=== PATIENT | female | born 1975 | race African-American/Black ===

== ENCOUNTER 2017-05-24 17:49 | Emergency (ER) | payer MEDICAID ==
[~2017-05-24] VITALS: Ht 147.3 cm; Wt 85.0 kg
[~2017-05-24 17:49] MED LIST: CELE20TA PO; FOLI5CAP PO; HYDR-3535 PO; MEDR4PAK PO; MILL5TAB PO; RANI150C PO
[2017-05-24 17:56] VITALS: BP 169/102; PULSE 142; RESP 17; TEMP 100.3; O2SAT 100
--- NOTE | 2017-05-24 18:27 | RADRPT ---
EXAM DATE/TIME: 05/24/2017 18:15 [facility] COMPARISON: No previous studies available for comparison. INDICATIONS : Chest pain. MEDICAL HISTORY : None. SURGICAL HISTORY : None. ENCOUNTER: Initial ACUITY: 3 days PAIN SCORE: 10/10 LOCATION: Bilateral chest FINDINGS: Fairly diffuse but basilar predominant hazy parenchymal opacities are seen of both lungs. Heart size is upper limits of normal. Very small, bilateral pleural effusions are suspected. No pneumothorax. CONCLUSION: Probable early or mild failure in the proper clinical setting versus bibasilar pneumonia. Sergio Snowden MD on May 24, 2017 at 18:24 Board Certified Radiologist. This report was verified electronically.
[2017-05-24 19:28] VITALS: BP 144/85; PULSE 114; RESP 24; TEMP 101; O2SAT 99
[2017-05-24] MEDS ORDERED: HYDR-3583 PO (19:33)
[2017-05-24] MEDS ORDERED: oxyCODONE/ACETAMINOPHEN 5 MG/325 MG TAB PO ONE (20:00)
[2017-05-24] MEDS ORDERED: ACETAMINOPHEN 325 MG TAB PO ONE (20:00)
[2017-05-24] MEDS ORDERED: AZITHROMYCIN 250 MG TAB PO ONE (20:15)
[2017-05-24 22:06] VITALS: BP 138/73; PULSE 108; RESP 18; TEMP 100.9; O2SAT 98
[2017-05-24 22:39] LABS: AUTOMATED NEUTROPHIL # 5.6 TH/MM3 (1.8-7.7); BASOPHIL % 0.6 % (0.0-2.0); EOSINOPHIL # 0.1 TH/MM3 (0-0.4); EOSINOPHIL % 1.2 % (0.0-4.0); HEMATOCRIT 29.8 % (35.0-46.0); HEMOGLOBIN 9.6 GM/DL (11.6-15.3); LYMPH % 16.4 % (9.0-44.0); LYMPHOCYTE # 1.3 TH/MM3 (1.0-4.8); MEAN CELL VOLUME 81.9 FL (80.0-100.0); MEAN CORPUSCULAR HEMOGLOBIN 26.5 PG (27.0-34.0); MEAN CORPUSCULAR HGB CONC 32.3 % (32.0-36.0); MEAN PLATELET VOLUME 8.6 FL (7.0-11.0); MONO % 11.6 % (0.0-8.0); MONOCYTE # 0.9 TH/MM3 (0-0.9); NEUT % 70.2 % (16.0-70.0); PLATELET COUNT 478 TH/MM3 (150-450); RED BLOOD COUNT 3.64 MIL/MM3 (4.00-5.30); WHITE BLOOD COUNT 7.9 TH/MM3 (4.0-11.0)
[2017-05-24 22:45] LABS: BICARBONATE 25.6 MEQ/L (21.0-32.0); BLOOD UREA NITROGEN 5 MG/DL (7-18); CALCIUM 8.8 MG/DL (8.5-10.1); CHLORIDE 98 MEQ/L (98-107); CREATININE 0.58 MG/DL (0.50-1.00); GLOMERULAR FILTRATION RATE 137 ML/MIN (>89); GLUCOSE,RANDOM 90 MG/DL (74-106); SODIUM (NA) 135 MEQ/L (136-145)
--- NOTE | 2017-05-24 22:47 | PD ---
HPI Chief Complaint: Chest Pain Time Seen by Provider: 19:23 Travel History International Travel<30 days: No Contact w/Intl Traveler<30days: No Traveled to known affect area: No History of Present Illness HPI Patient is a 42-year-old female with RA on prednisone , pt coming in with 3 days of right-sided chest pain just to the right of her sternum area. She has had shortness of breath and she says is more difficult to breathe when she lies flat. 2 years ago she had a pleural effusion she said that was drained. She has a history of shortness of breath coughing and a fever of 101 here at triage. Main complaint is localized right-sided chest pain worse with lying flat shortness of breath increases with lying flat. She took 1 dose of Motrin at 6 hours ago for the aches with moderate relief now the symptoms have returned. She has not seen another doctor for this and she has not taken any antibiotics she said the pleural effusion she had was secondary to pneumonia. PFSH Past Medical History Hx Anticoagulant Therapy: No Anemia: Yes Arthritis: Yes (osteoarthritis/rheumatoid arthritis) Asthma: No Autoimmune Disease: Yes Anxiety: No Depression: Yes Heart Rhythm Problems: No Cancer: No Cardiovascular Problems: No High Cholesterol: No Chemotherapy: No Chest Pain: Yes (last bout 3-4 months ago) Congestive Heart Failure: No COPD: No Cerebrovascular Accident: No Diabetes: No Diminished Hearing: No Endocrine: No Gastrointestinal Disorders: Yes GERD: Yes Genitourinary: No Headaches: Yes Hepatitis: No Hiatal Hernia: No Immune Disorder: No Implanted Vascular Access Dvce: Yes Kidney Stones: No Musculoskeletal: Yes Neurologic: Yes Psychiatric: Yes Reproductive: No Respiratory: No Migraines: Yes (every now and then) Renal Failure: No Seizures: No Sleep Apnea: Yes Thyroid Disease: No Ulcer: No ?: Not : 1 Para: 1 Miscarriage: 0 : 0 Past Surgical History Abdominal Surgery: No AICD: No Arteriovenous Shunt: No Body Medical Devices: NONE Cardiac Surgery: Yes Section: Yes Ear Surgery: No Endocrine Surgery: No Eye Surgery: No Genitourinary Surgery: No Gynecologic Surgery: Yes (C SECTION) Hysterectomy: No Insulin Pump: No Joint Replacement: Yes (Right total hip 11/2014) Neurologic Surgery: No Oral Surgery: No Pacemaker: No Thoracic Surgery: No Other Surgery: Yes Social History Alcohol Use: No Tobacco Use: No Substance Use: No Allergies-Medications (Allergen,Severity, Reaction): Coded Allergies: aspirin (Unverified Allergy, Severe, FLUID BUILDS UP IN HER CHEST, 05/24/17 ) Reported Meds & Prescriptions Reported Meds & Active Scripts Active Guaifenesin AC Liq (Guaifenesin-Codeine Liq) 100-10 Mg/5 Ml Syrp 10 Ml PO Q6H PRN Azithromycin 250 Mg Tab 250 Mg PO DAILY Reported Hydrocodone-Acetaminophen 10-325 mg Tab 1 Tab PO Q4H PRN Celexa (Citalopram Hydrobromide) 20 Mg Tab 20 Mg PO DAILY Millipred (Prednisolone) 5 Mg Tab 5 Mg PO EVERY OTHER DAY Ranitidine (Ranitidine HCl) 150 Mg Cap 150 Mg PO BID Review of Systems Except as stated in HPI: all other systems reviewed are Neg Cardiovascular: Positive: Chest Pain or Discomfort Respiratory: Positive: Cough, Shortness of Breath Physical Exam Narrative GENERAL: Patient is tachycardic and appears to be in pain mild fever of 101 at triage SKIN: Warm and dry. patchy rash on her face diffuse HEAD: Atraumatic. Normocephalic. EYES: Pupils equal and round. No scleral icterus. No injection or drainage. ENT: No nasal bleeding or discharge. Mucous membranes pink and moist. NECK: Trachea midline. No JVD. CARDIOVASCULAR: Regular rate and rhythm. Sinus tach at 123 on EKG. Patient has reproducible right costochondritis-like pain just off of the right of the sternum around rib 6 RESPIRATORY: No accessory muscle use. Patient is decrease breath sounds in the right lower lobe and also moderate crackles as mid right lobe GASTROINTESTINAL: Abdomen soft, non-tender, nondistended. Hepatic and splenic margins not palpable. MUSCULOSKELETAL: Extremities left hand deformities of RA at wrist without clubbing, cyanosis, or edema. NEUROLOGICAL: Awake and alert. No obvious cranial nerve deficits. Motor grossly within normal limits. Five out of 5 muscle strength in the arms and legs. Normal speech. PSYCHIATRIC: Appropriate mood and affect; insight and judgment normal. Data Data Last Documented VS Vital Signs Date Time Temp Pulse Resp B/P (MAP) Pulse Ox O2 Delivery O2 Flow Rate FiO2 05/25/17 01:37 05/24/17 22:06 100.9 108 18 98 Room Air Orders Orders Electrocardiogram (05/24/17 18:00) Chest, Pa & Lat (05/24/17 ) Complete Blood Count With Diff (05/24/17 18:06) Basic Metabolic Panel (Bmp) (05/24/17 18:06) Ckmb (Isoenzyme) Profile (05/24/17 18:06) Troponin I (05/24/17 18:06) Beta Hcg (Quant/Titer) (05/24/17 19:23) Ed Urine Pregnancytest Poc (05/24/17 19:24) Blood Culture (05/24/17 19:47) Lactic Acid (05/24/17 19:47) Acetaminophen (Tylenol) (05/24/17 20:00) Oxycodone-Acetamin 5-325 Mg (Percocet (05/24/17 20:00) Azithromycin (Zithromax) (05/24/17 20:15) Urinalysis - C+S If Indicated (05/24/17 22:43) Ct Pulmonary Angiogram (05/25/17 ) Iohexol 350 Inj (Omnipaque 350 Inj) (05/25/17 00:48) Ed Discharge Order (05/25/17 01:46) Labs Laboratory Tests Test 05/24/17 20:18 05/24/17 21:45 05/24/17 21:55 05/24/17 22:00 Lactic Acid Level 1.6 mmol/L Urine Color YELLOW Urine Turbidity CLEAR Urine pH 7.5 Urine Specific [place] 1.013 Urine Protein TRACE mg/dL Urine Glucose (UA) NEG mg/dL Urine Ketones 10 mg/dL Urine Occult Blood TRACE Urine Nitrite NEG Urine Bilirubin NEG Urine Urobilinogen LESS THAN 2.0 MG/DL Urine Leukocyte Esterase NEG Urine RBC LESS THAN 1 /hpf Urine WBC LESS THAN 1 /hpf Urine Squamous Epithelial Cells 2 /hpf Urine Bacteria RARE /hpf Microscopic Urinalysis Comment CULT NOT INDICATED Blood Urea Nitrogen 5 MG/DL Creatinine 0.58 MG/DL Random Glucose 90 MG/DL Calcium Level 8.8 MG/DL Sodium Level 135 MEQ/L Potassium Level 3.8 MEQ/L Chloride Level 98 MEQ/L Carbon Dioxide Level 25.6 MEQ/L Anion Gap 11 MEQ/L Estimat Glomerular Filtration Rate 137 ML/MIN Total Creatine Kinase 79 U/L Troponin I LESS THAN 0.02 NG/ML Human Chorionic Gonadotropin, Quant LESS THAN 1 MIU/ML White Blood Count 7.9 TH/MM3 Red Blood Count 3.64 MIL/MM3 Hemoglobin 9.6 GM/DL Hematocrit 29.8 % Mean Corpuscular Volume 81.9 FL Mean Corpuscular Hemoglobin 26.5 PG Mean Corpuscular Hemoglobin Concent 32.3 % Red Cell Distribution Width 16.0 % Platelet Count 478 TH/MM3 Mean Platelet Volume 8.6 FL Neutrophils (%) (Auto) 70.2 % Lymphocytes (%) (Auto) 16.4 % Monocytes (%) (Auto) 11.6 % Eosinophils (%) (Auto) 1.2 % Basophils (%) (Auto) 0.6 % Neutrophils # (Auto) 5.6 TH/MM3 Lymphocytes # (Auto) 1.3 TH/MM3 Monocytes # (Auto) 0.9 TH/MM3 Eosinophils # (Auto) 0.1 TH/MM3 Basophils # (Auto) 0.0 TH/MM3 CBC Comment DIFF FINAL Differential Comment MDM Medical Decision Making Medical Screen Exam Complete: Yes Emergency Medical Condition: Yes Differential Diagnosis PNA vs CP of ischemia vs costochondritis vs muscle starin vs GERD other Narrative Course I discussed with the patient the need for inpatient admission and echocardiogram to figure out her cardiac effusion which she has no idea that she has. It was on CAT scan there is no signs of tamponade or ventricular compromise however I want to admit her for cardiac follow-up room hematology follow-up as well as echocardiogram to assure her ventricle is not in any way compromise she refuses to be admitted patient wants to leave I do not make her sign out AGAINST MEDICAL ADVICE but I explained that the infusion rapidly increases it can cause cardiac tamponade which could lead to syncope which could lead to she still insists she would like to go home and follow her Dr. I gave her a report copy of her CT results that show the mild pericardial effusion otherwise her lungs will be treated as a bronchitis with azithromycin and cough syrup Diagnosis Primary Impression: Pericardial effusion Patient Instructions: General Instructions, Pericardial Effusion (ED) Scripts Guaifenesin-Codeine Liq (Guaifenesin AC Liq) 100-10 Mg/5 Ml Syrp 10 ML PO Q6H Y for COUGH, #1 BOTTLE 0 Refills Prov: Harsha Encinas MD 05/25/17 Azithromycin (Azithromycin) 250 Mg Tab 250 MG PO DAILY for Infection, #4 TAB 0 Refills Prov: Harsha Encinas MD 05/25/17 Disposition: 01 DISCHARGE HOME Condition: Harsha Magaña MD May 24, 2017 22:47
[2017-05-24 23:15] LABS: BACTERIA, URINE RARE /hpf; BILIRUBIN, URINE NEG (NEG); BLOOD, URINE TRACE (NEG); GLUCOSE,URINE NEG (NEG); KETONE, URINE 10 mg/dL (NEG); NITRITE,URINE NEG (NEG); PH, URINE 7.5 (5.0-8.5); SQUAMOUS EPITHELIAL CELL URINE 2 /hpf (0-5); URINE COLOR YELLOW (YELLW/STRAW); URINE LEUKOCYTE ESTERASE NEG (NEG)
[2017-05-25 00:21] LABS: TROPONIN I LESS THAN 0.02 NG/ML (0.02-0.05)
[2017-05-25] MEDS ORDERED: IOHEXOL 350 MG/ML 10 ML VIAL (for RAD DIAG) IVCONTRAST ONE (00:48)
--- NOTE | 2017-05-25 01:04 | RADRPT ---
EXAM DATE/TIME: 05/25/2017 00:46 [facility] COMPARISON: CT PULMONARY ANGIOGRAM, November 15, 2014, 12:48. INDICATIONS : Chest pain. IV CONTRAST: 75 cc Omnipaque 350 (iohexol) IV RADIATION DOSE: 15.03 CTDIvol (mGy) MEDICAL HISTORY : Gastroesophageal reflux disease. SURGICAL HISTORY : Hip. ENCOUNTER: Initial ACUITY: 1 day PAIN SCALE: 5/10 LOCATION: Bilateral chest TECHNIQUE: Volumetric scanning of the chest was performed using a pulmonary embolism protocol MIP images were re constructed. Using automated exposure control and adjustment of the mA and/or kV according to patien t size, radiation dose was kept as low as reasonably achievable to obtain optimal diagnostic quality images. DICOM format image data is available electronically for review and comparison. Follow-up recommendations for detected pulmonary nodules are based at a minimum on nodule size and pa tient risk factors according to Fleischner Society Guidelines. FINDINGS: Breathing motion artifact degrades the exam. PULMONARY ARTERIES: No filling defects are seen in the pulmonary arteries through the segmental level. LUNGS: There is no consolidation or pneumothorax . No concerning pulmonary nodule is visualized. Mild scatt ered areas of dependent atelectasis. PLEURAE: There is no pleural thickening or pleural effusion. MEDIASTINUM: The heart is at the upper limits of normal in terms of size. Small pericardial effusion. Some residua l thymic tissue is noted. This is stable from the 2014 exam. MUSCULOSKELETAL: Within normal limits for patient age. MISCELLANEOUS: The visualized upper abdominal organs demonstrate no acute abnormality. CONCLUSION: 1. No pulmonary emboli. 2. Minimal scattered dependent atelectasis. 3. Small pericardial effusion. Mark Reyes Jr., MD on May 25, 2017 at 0:59 Board Certified Radiologist. This report was verified electronically.
[2017-05-25] MEDS ORDERED: AZIT250T3 PO (01:27)
[2017-05-25] MEDS ORDERED: GUAISYP4 PO (01:32)
--- NOTE | 2017-05-25 13:48 | EKG ---
Date Performed: 05/24/2017 Time Performed: 18:02:27 PTAGE: 42 years EKG: SINUS TACHYCARDIA NONSPECIFIC T-WAVE ABNORMALITY ABNORMAL RHYTHM ECG Compared to PREVIOUS TRACING the sinus tachycardia is new. There has been some slight variation in t he nonspecific T wave changes PREVIOUS TRACIN01/18/16 DOCTOR: Cyndi Milan Interpretating Date/Time 05/25/2017 13:46:21
== END 2017-05-25 02:07 | disposition home or self-care (01) ==
LOC: NEPC 17:49
DX: I31.3 Pericardial effusion (noninflammatory) (principal); J40 Bronchitis, not specified as acute or chronic; R50.9 Fever, unspecified; R94.31 Abnormal electrocardiogram [ECG] [EKG]; M06.9 Rheumatoid arthritis, unspecified; K21.9 Gastro-esophageal reflux disease without esophagitis; G47.30 Sleep apnea, unspecified; F32.9 Major depressive disorder, single episode, unspecified; Z87.19 Personal history of other diseases of the digestive system; Z87.39 Personal history of other diseases of the musculoskeletal system and connective tissue; Z86.69 Personal history of other diseases of the nervous system and sense organs
CPT/HCPCS: 71046; 71275; 80048; 81001; 82550; 83605; 84484; 84702; 84703; 85025; 87040; 93005; 99285; Q9967

== ENCOUNTER 2017-07-19 08:31 | Emergency (ER) | payer MEDICAID ==
[~2017-07-19 08:31] MED LIST changes: +AZIT250T3 PO; -FOLI5CAP PO; +GUAISYP4 PO; -HYDR-3535 PO; +HYDR-3583 PO; -MEDR4PAK PO
[2017-07-19] MEDS ORDERED: IOHEXOL 350 MG/ML 10 ML VIAL (for RAD DIAG) IVCONTRAST ONE (08:32)
[2017-07-19 08:33] VITALS: BP 173/91; PULSE 96; RESP 18; TEMP 98.8; O2SAT 100
[2017-07-19 08:51] VITALS: BP 166/85; PULSE 96; RESP 16; O2SAT 99
[2017-07-19] MEDS ORDERED: AMLO10TA2 PO (08:55)
[2017-07-19] MEDS ORDERED: LISI-519 PO (08:55)
--- NOTE | 2017-07-19 09:11 | PD ---
HPI Chief Complaint: Chest Pain Time Seen by Provider: 08:45 Travel History International Travel<30 days: No Contact w/Intl Traveler<30days: No Traveled to known affect area: No History of Present Illness HPI 42-year-old female complains of chest pain. Patient states that she started having substernal chest pain since yesterday. Patient states that chest pain has been intermittent. Patient states the pain is aching pain localized to the substernal area. Patient denies any pain radiation. Patient denies palpitation nausea diaphoresis. Patient states that she has shortness of breath with the chest pain. Patient denies any coughing congestion fever chills. Patient has a history of rheumatoid arthritis and hypertension. Patient denies any history of CAD. Patient states that she has history of pericardial effusion that required pericardiocentesis in the past. Patient states that the procedure was done in [place]. Patient has history of hypertension and was on lisinopril and amlodipine. Patient is not sure what the dosage of the medications. Patient states that she ran out of her medications a week ago. Patient denies any history of diabetes or hyperlipidemia. Patient is a non-smoker. Patient denies family history of heart disease. On a scale of 1-10 the pain is a 4. PFSH Past Medical History Hx Anticoagulant Therapy: No Anemia: Yes Arthritis: Yes (osteoarthritis/rheumatoid arthritis) Asthma: No Autoimmune Disease: Yes Anxiety: No Depression: Yes Heart Rhythm Problems: No Cancer: No Cardiovascular Problems: No High Cholesterol: No Chemotherapy: No Chest Pain: Yes Congestive Heart Failure: No COPD: No Cerebrovascular Accident: No Diabetes: No Diminished Hearing: No Endocrine: No Gastrointestinal Disorders: Yes GERD: Yes Genitourinary: No Headaches: Yes Hepatitis: No Hiatal Hernia: No Immune Disorder: No Implanted Vascular Access Dvce: Yes Kidney Stones: No Musculoskeletal: Yes Neurologic: Yes Psychiatric: Yes Reproductive: No Respiratory: No Migraines: Yes (every now and then) Renal Failure: No Seizures: No Sleep Apnea: Yes Thyroid Disease: No Ulcer: No ?: Not : 1 Para: 1 Miscarriage: 0 : 0 Past Surgical History Abdominal Surgery: No AICD: No Arteriovenous Shunt: No Body Medical Devices: NONE Cardiac Surgery: Yes Section: Yes Ear Surgery: No Endocrine Surgery: No Eye Surgery: No Genitourinary Surgery: No Gynecologic Surgery: Yes (C SECTION) Hysterectomy: No Insulin Pump: No Joint Replacement: Yes (Right total hip 11/2014) Neurologic Surgery: No Oral Surgery: No Pacemaker: No Thoracic Surgery: No Other Surgery: Yes Social History Alcohol Use: No Tobacco Use: No Substance Use: No Allergies-Medications (Allergen,Severity, Reaction): Coded Allergies: aspirin (Unverified Allergy, Severe, FLUID BUILDS UP IN HER CHEST, 05/24/17 ) Reported Meds & Prescriptions Reported Meds & Active Scripts Active Reported Amlodipine (Amlodipine Besylate) 10 Mg Tab 10 Mg PO DAILY Lisinopril 5 Mg Tab 5 Mg PO DAILY Hydrocodone-Acetaminophen 10-325 mg Tab 1 Tab PO Q4H PRN Millipred (Prednisolone) 5 Mg Tab 5 Mg PO EVERY OTHER DAY Review of Systems General / Constitutional: No: Fever Eyes: No: Visual changes HENT: No: Headaches Cardiovascular: Positive: Chest Pain or Discomfort Respiratory: Positive: Shortness of Breath Gastrointestinal: No: Abdominal Pain Genitourinary: No: Dysuria Musculoskeletal: No: Pain Skin: No Rash Neurologic: No: Weakness Psychiatric: No: Depression Endocrine: No: Polydipsia Hematologic/Lymphatic: No: Easy Bruising Physical Exam Narrative GENERAL: Well-nourished, well-developed patient. SKIN: Focused skin assessment warm/dry. HEAD: Normocephalic. EYES: No scleral icterus. No injection or drainage. NECK: Supple, trachea midline. No JVD or lymphadenopathy. CARDIOVASCULAR: Regular rate and rhythm without murmurs, gallops, or rubs. RESPIRATORY: Breath sounds equal bilaterally. No accessory muscle use. GASTROINTESTINAL: Abdomen soft, non-tender, nondistended. MUSCULOSKELETAL: No cyanosis, or edema. BACK: Nontender without obvious deformity. No CVA tenderness. Neurologic exam normal. Data Data Last Documented VS Vital Signs Date Time Temp Pulse Resp B/P (MAP) Pulse Ox O2 Delivery O2 Flow Rate FiO2 07/19/17 09:17 (112) Room Air 07/19/17 08:51 96 16 99 07/19/17 08:33 98.8 Orders Orders Electrocardiogram (07/19/17 08:58) Complete Blood Count With Diff (07/19/17 08:58) Comprehensive Metabolic Panel (07/19/17 08:58) Creatine Kinase (Cpk) (07/19/17 08:58) Troponin I (07/19/17 08:58) B-Type Natriuretic Peptide (07/19/17 08:58) Prothrombin Time / Inr (Pt) (07/19/17 08:58) Act Partial Throm Time (Ptt) (07/19/17 08:58) D-Dimer (07/19/17 08:58) Chest, Single Ap (07/19/17 08:58) Iv Access Insert/Monitor (07/19/17 08:58) Ecg Monitoring (07/19/17 08:58) Oximetry (07/19/17 08:58) Ct Pulmonary Angiogram (07/19/17 08:58) Vascular Access Team Consult/P PRN (07/19/17 09:24) Vascular Poc Ultrasound (07/19/17 ) Iohexol 350 Inj (Omnipaque 350 Inj) (07/19/17 08:32) Morphine Inj (Morphine Inj) (07/19/17 11:15) Ondansetron Inj (Zofran Inj) (07/19/17 11:15) Labs Laboratory Tests Test 07/19/17 09:40 07/19/17 09:50 Blood Urea Nitrogen 6 MG/DL Creatinine 0.54 MG/DL Random Glucose 103 MG/DL Total Protein 8.6 GM/DL Albumin 3.3 GM/DL Calcium Level 8.6 MG/DL Alkaline Phosphatase 107 U/L Aspartate Amino Transf (AST/SGOT) 14 U/L Alanine Aminotransferase (ALT/SGPT) 13 U/L Total Bilirubin 0.1 MG/DL Sodium Level 139 MEQ/L Potassium Level 3.9 MEQ/L Chloride Level 107 MEQ/L Carbon Dioxide Level 21.6 MEQ/L Anion Gap 10 MEQ/L Estimat Glomerular Filtration Rate 148 ML/MIN Total Creatine Kinase 106 U/L Troponin I LESS THAN 0.02 NG/ML B-Type Natriuretic Peptide 14 PG/ML White Blood Count 4.6 TH/MM3 Red Blood Count 3.87 MIL/MM3 Hemoglobin 10.2 GM/DL Hematocrit 31.4 % Mean Corpuscular Volume 81.1 FL Mean Corpuscular Hemoglobin 26.4 PG Mean Corpuscular Hemoglobin Concent 32.6 % Red Cell Distribution Width 16.9 % Platelet Count 394 TH/MM3 Mean Platelet Volume 8.3 FL Neutrophils (%) (Auto) 64.0 % Lymphocytes (%) (Auto) 24.7 % Monocytes (%) (Auto) 9.5 % Eosinophils (%) (Auto) 1.0 % Basophils (%) (Auto) 0.8 % Neutrophils # (Auto) 2.9 TH/MM3 Lymphocytes # (Auto) 1.1 TH/MM3 Monocytes # (Auto) 0.4 TH/MM3 Eosinophils # (Auto) 0.0 TH/MM3 Basophils # (Auto) 0.0 TH/MM3 CBC Comment DIFF FINAL Differential Comment Prothrombin Time 10.9 SEC Prothromb Time International Ratio 1.1 RATIO Activated Partial Thromboplast Time 26.7 SEC D-Dimer Quantitative (PE/DVT) 1.22 MG/L [facility] Medical Decision Making Medical Screen Exam Complete: Yes Emergency Medical Condition: Yes Interpretation(s) EKG shows sinus rhythm nonspecific ST-T wave change. T-wave inversion in V1 V2 V3 V4 V5. Unchanged from previous EKG. 11:21 AM. Last Impressions Chest X-Ray 07/19/17857 Signed Impressions: Service Date/Time: Wednesday, July 19, 2017 09:17 - CONCLUSION: Under aerated chest otherwise negative Byron Wells MD FACR CT Angiography 07/19/17857 Signed Impressions: Service Date/Time: Wednesday, July 19, 2017 10:45 - CONCLUSION: No evidence of pulmonary embolism. Sergio Solomon MD CBC WBC 4.6. Hemoglobin 10.2 hematocrit 31.4. Normal differential. CMP within normal limits. Cardiac enzymes are normal. BNP 14. Differential Diagnosis Differential diagnosis including angina, [place], PE, pneumothorax, pericardial effusion, musculoskeletal. Narrative Course 42-year-old female with chest pain and shortness of breath. Patient was advised to be admitted to the chest pain center. Patient refused admission. Patient wants to go home. Diagnosis Primary Impression: Chest pain Qualified Codes: R07.9 - Chest pain, unspecified Patient Instructions: General Instructions Additional Instructions: Continue with all medications. Follow-up with personal physician. Advised patient return if she change her mind and wants to be admitted for chest pain workup. Med/Other Pt SpecificInfo: No Change to Meds Scripts Amlodipine (Amlodipine) 5 Mg Tab 5 MG PO DAILY for Blood Pressure Management, #30 TAB 0 Refills Prov: Alton Sung MD 07/19/17 Lisinopril (Lisinopril) 10 Mg Tab 10 MG PO DAILY, #30 TAB 0 Refills Prov: Alton Sung MD 07/19/17 Disposition: 01 DISCHARGE HOME Condition: Stable Alton Sung MD July 19, 2017 09:11
--- NOTE | 2017-07-19 09:47 | RADRPT ---
EXAM DATE/TIME: 07/19/2017 09:17 [facility] COMPARISON: CHEST SINGLE AP, January 18, 2016, 22:13. INDICATIONS : Chest pain and headache. MEDICAL HISTORY : Gastroesophageal reflux disease. SURGICAL HISTORY : Right total hip arthroplasty. ENCOUNTER: Initial ACUITY: 1 day PAIN SCORE: 6/10 LOCATION: Bilateral chest FINDINGS: Lungs are under aerated. Cardiac silhouette prominent problem base is underaeration. No pneumothora x no pleural effusion The portion of the bony skeleton visualized is unremarkable. CONCLUSION: Under aerated chest otherwise negative Byron Wells MD FACR on July 19, 2017 at 9:42 Board Certified Radiologist. This report was verified electronically.
[2017-07-19 10:03] LABS: AUTOMATED NEUTROPHIL # 2.9 TH/MM3 (1.8-7.7); BASOPHIL % 0.8 % (0.0-2.0); HEMATOCRIT 31.4 % (35.0-46.0); HEMOGLOBIN 10.2 GM/DL (11.6-15.3); LYMPH % 24.7 % (9.0-44.0); LYMPHOCYTE # 1.1 TH/MM3 (1.0-4.8); MEAN CELL VOLUME 81.1 FL (80.0-100.0); MEAN CORPUSCULAR HEMOGLOBIN 26.4 PG (27.0-34.0); MEAN CORPUSCULAR HGB CONC 32.6 % (32.0-36.0); MEAN PLATELET VOLUME 8.3 FL (7.0-11.0); MONO % 9.5 % (0.0-8.0); MONOCYTE # 0.4 TH/MM3 (0-0.9); PLATELET COUNT 394 TH/MM3 (150-450); RED BLOOD COUNT 3.87 MIL/MM3 (4.00-5.30); RED CELL DISTRIBUTION WIDTH 16.9 % (11.6-17.2); WHITE BLOOD COUNT 4.6 TH/MM3 (4.0-11.0)
[2017-07-19 10:11] LABS: ALKALINE PHOSPHATASE 107 U/L (45-117); TOTAL BILIRUBIN ADULT 0.1 MG/DL (0.2-1.0); TOTAL PROTEIN 8.6 GM/DL (6.4-8.2); TROPONIN I LESS THAN 0.02 NG/ML (0.02-0.05)
[2017-07-19 10:16] LABS: INTERNATIONAL NORMALIZED RATIO 1.1 RATIO; PROTHROMBIN TIME - PATIENT 10.9 SEC (9.8-11.6)
[2017-07-19 10:18] LABS: D-DIMER 1.22 MG/L FEU (0.00-0.50)
[2017-07-19 10:24] LABS: ALBUMIN 3.3 GM/DL (3.4-5.0); ALT (GPT) 13 U/L (10-53); AST (GOT) 14 U/L (15-37); BICARBONATE 21.6 MEQ/L (21.0-32.0); BLOOD UREA NITROGEN 6 MG/DL (7-18); CALCIUM 8.6 MG/DL (8.5-10.1); CHLORIDE 107 MEQ/L (98-107); CREATININE 0.54 MG/DL (0.50-1.00); GLOMERULAR FILTRATION RATE 148 ML/MIN (>89); GLUCOSE,RANDOM 103 MG/DL (74-106); SODIUM (NA) 139 MEQ/L (136-145)
--- NOTE | 2017-07-19 11:13 | RADRPT ---
EXAM DATE/TIME: 07/19/2017 10:45 [facility] COMPARISON: CT PULMONARY ANGIOGRAM, May 25, 2017, 0:46. CT PULMONARY ANGIOGRAM, November 15, 2014, 12:48. INDICATIONS : Chest pain and shortness of breath. IV CONTRAST: 69 cc Omnipaque 350 (iohexol) IV RADIATION DOSE: 10.77 CTDIvol (mGy) MEDICAL HISTORY : Cardiovascular disease. Anemia. SURGICAL HISTORY : section. ENCOUNTER: Initial ACUITY: 1 day PAIN SCALE: 4/10 LOCATION: Left chest TECHNIQUE: Volumetric scanning of the chest was performed using a pulmonary embolism protocol MIP images were re constructed. Using automated exposure control and adjustment of the mA and/or kV according to patien t size, radiation dose was kept as low as reasonably achievable to obtain optimal diagnostic quality images. DICOM format image data is available electronically for review and comparison. Follow-up recommendations for detected pulmonary nodules are based at a minimum on nodule size and pa tient risk factors according to Fleischner Society Guidelines. FINDINGS: PULMONARY ARTERIES: No filling defects are seen in the pulmonary arteries through the segmental level. LUNGS: Minimal stable pleural-parenchymal scarring in the anterolateral right upper lobe. PLEURAE: There is no pleural thickening or pleural effusion. MEDIASTINUM: Prominent soft tissue density in the prevascular anterior mediastinum is likely residual thymic tissu e and is unchanged from previous. MUSCULOSKELETAL: Within normal limits for patient age. MISCELLANEOUS: Mild prominence of lymph nodes in the axilla bilaterally, also fairly stable. CONCLUSION: No evidence of pulmonary embolism. Sergio Solomon MD on July 19, 2017 at 11:06 Board Certified Radiologist. This report was verified electronically.
[2017-07-19] MEDS ORDERED: MORPHINE SULFATE 4 MG/ML INJ IV PUSH ONE (11:15)
[2017-07-19] MEDS ORDERED: ONDANSETRON HCL 4 MG/2 ML VIAL IV PUSH ONE (11:15)
[2017-07-19 11:20] VITALS: RESP 18
[2017-07-19] MEDS ORDERED: LISI10TA3 PO (11:30)
[2017-07-19] MEDS ORDERED: AMLO5TAB2 PO (11:30)
--- NOTE | 2017-07-19 12:30 | EKG ---
Date Performed: 07/19/2017 Time Performed: 08:46:23 PTAGE: 42 years EKG: Sinus rhythm MODERATE T-WAVE ABNORMALITY, CONSIDER ANTERIOR ISCHEMIA ABNORMAL ECG INTERPRETATION BASED ON A DEFAU LT AGE OF 40 YEARS PREVIOUS TRACING : 05/24/2017 18.02 DOCTOR: Nick Alvarado Interpretating Date/Time 07/19/2017 12:29:07
== END 2017-07-19 12:04 | disposition home or self-care (01) ==
LOC: NEPE 08:31
DX: R07.9 Chest pain, unspecified (principal); R06.02 Shortness of breath
CPT/HCPCS: 71045; 71275; 80053; 82550; 83880; 84484; 85025; 85379; 85610; 85730; 93005; 96374; 96375; 99285; J2270; J2405; Q9967